=== PATIENT | male | born 1995 | race Asian ===

== ENCOUNTER 2018-05-07 20:25 | Emergency (ER) | payer OTHER ==
[~2018-05-07] VITALS: Ht 165.1 cm; Wt 70.3 kg
[~2018-05-07 20:25] MED LIST: IBUP-1957
[2018-05-07 20:58] VITALS: BP 129/62
[2018-05-07] MEDS ORDERED: LIDOCAINE VISCOUS 2% UD 15 ML UDC ONE (23:04)
[2018-05-07] MEDS ORDERED: CARBAMIDE PEROXIDE OTIC 15 ML BOTTLE ONE (23:13)
[2018-05-07] MEDS ORDERED: CARBAMIDE PEROXIDE OTIC 15 ML BOTTLE OT ONE (23:30)
[2018-05-07] MEDS ORDERED: LIDOCAINE VISCOUS 2% UD 15 ML UDC MM ONE (23:30)
== END 2018-05-08 00:12 | disposition home or self-care (01) ==
LOC: ER 20:26
DX: H61.21 Impacted cerumen, right ear (principal)